=== PATIENT | male | born 1950 | race Caucasian/White ===

== ENCOUNTER 2017-02-06 10:40 | Emergency (ER) | payer OTHER ==
[~2017-02-06] VITALS: Ht 165.1 cm; Wt 70.3 kg
[~2017-02-06 10:40] MED LIST: ADVAIR 250-501 EACH INH; AMLODIPINE BESYL5 M1 PO; AUGMENTIN 875-1 EACH PO; BUPROPION XL300 M1 PO; COUMADIN5 M2 PO; GABAPENTIN400 M2 PO; METOPROLOL TART25 M1 PO; MORPHINE SULFAT15 M4 PO; MORPHINE SULFAT30 M7 PO; MS CONTIN100 MG PO; OMEPRAZOLE20 M2 PO; PRAVASTATIN SOD80 M2 PO; PREDNISONE10 M2 PO; PROVENTIL HFA6.7 GM INH; SERTRALINE HCL50 MG PO
--- NOTE | 2017-02-06 11:09 | ED MVC/FALL/TRAUMA COMPLAINT ---
History of Present Illness General Chief Complaint: Upper Extremity Problem Stated Complaint: R ELBOW INJURY Source: patient, old records Exam Limitations: no limitations Vital Signs & Intake/Output Vital Signs & Intake/Output Vital Signs Date Time Temp Pulse Resp B/P B/P Pulse O2 O2 Flow FiO2 Mean Ox Delivery Rate 02/06 1334 98.7 92 12 130/87 96 Room Air 02/06 1157 96.9 88 12 159/89 94 Room Air 02/06 1048 98.6 85 18 139/93 98 Room Air Allergies Coded Allergies: Fish Containing Products (Severe, LARYNGEAL EDEMA 01/07/16) FISH latex (Mild, SKIN IRRITATION 01/07/16) Reconcile Medications Albuterol Sulfate (Proventil Hfa) 90 MCG HFA.AER.AD 2 PUF INH 4 TIMES/DAY PRN COPD (Reported) Albuterol Sulfate (Proair Hfa) 90 MCG HFA.AER.AD 2 PUF INH Q4-6 PRN PRN COPD (Reported) Amlodipine Besylate 5 MG TABLET 0.5 TAB PO DAILY HEART (Reported) Apixaban (Eliquis) 5 MG TABLET 1 TAB PO BID PULMONARY EMBOLISM (Reported) Bupropion HCl (Bupropion XL) 300 MG TAB.ER.24H 1 TAB PO DAILY SMOKING CESSATION (Reported) Fluticasone/Salmeterol (Advair 250-50 Diskus) 250 MCG-50 MCG/DOSE BLST.W.DEV 1 PUF INH BID COPD (Reported) Fluticasone/Vilanterol (Breo Ellipta 100-25 Mcg INH) 100 MCG-25 MCG/DOSE BLST.W.DEV 1 PUF INH D COPD (Reported) Gabapentin 400 MG CAPSULE 1 CAP PO TID NERVE DAMAGE (Reported) Metoprolol Tartrate 25 MG TABLET 1 TAB PO BID HEART (Reported) Morphine Sulfate (Morphine Sulfate ER) 30 MG TABLET.ER 1 TAB PO BID PAIN ( Reported) Morphine Sulfate 30 MG TABLET 1 TAB PO 4XDP PAIN (Reported) Morphine Sulfate 15 MG TABLET 30 MG PO Q4P PRN BACK PAIN Morphine Sulfate (Ms Contin) 100 MG TABLET.ER 75 MG PO BID back pain Omeprazole 20 MG CAPSULE.DR 20 MG PO DAILY AC HEARTBURN Oxycodone HCl 5 MG CAPSULE 1-2 CAP PO 4XDP PRN pain Pravastatin Sodium 80 MG TABLET 1 TAB PO DAILY CHOLESTEROL (Reported) Prednisone 10 MG TABLET 0 PO SEE ADMIN CRITERIA COPD take 5 tabs x 2 days take 4 tabs x 3 days take 3 tabs x 3 days take 2 tabs x 3 days take 1 tab x 3 days take half a tab x 3 days then stop Sertraline HCl 50 MG TABLET 1 TAB PO DAILY ANXIETY (Reported) Tiotropium [place] (Spiriva Respimat) 2.5 MCG/ACTUATION MIST.INHAL 2 PUF INH D COPD (Reported) Warfarin Sodium (Coumadin) 5 MG TABLET 1 TAB PO DAILY blood thinner please check INR on 01/29/2016 to dose Coumadin Triage Note: 66 YO MALE TO TRIAGE STATES HE SLIPPED ON THE ICE THIS AM AND FELL ONTO HIS R ARM. +HEAD STRIKE, -LOC. PT STATES HE IS ON ELIQUIS, PT ARRIVES WITH BRACE ON R WRIST FOR "BRACHIAL REPAIR" THAT WAS DONE YEARS AGO, STATES HE WEARS THE SPLINT NEEDED FOR SUPPORT. Triage Nurses Notes Reviewed? yes HPI: Patient states that he slipped on the ice in his driveway and fell and landed on his right elbow. Patient also hit his head but there is no loss of consciousness. Patient denies any headache or blurry vision. There is no nausea or vomiting. He is having 10 out of 10 throbbing pain to his right elbow. Pain increases with movement. There is no radiation of the pain. Patient has no other complaints. Past History Travel History Traveled to [place] past 21 day No Medical History Any Pertinent Medical History? see below for history Neurological: NONE EENT: NONE Cardiovascular: AFIB, hypertension, hyperlipidemia Respiratory: COPD, pulmonary embolism Gastrointestinal: NONE Hepatic: HEP B Renal: NONE Musculoskeletal: disk herniation, CHRONIC BACK PAIN Psychiatric: NONE Endocrine: NONE Blood Disorders: ESSENTIAL THROMBOCYTOSIS Cancer(s): NONE History of MRSA: No History of VRE: No History of CDIFF: No Influenza Vaccine: 12/08/15 Surgical History Surgical History: non-contributory Psychosocial History Who do you live with Spouse Services at Home None What is your primary language Slovak Tobacco Use: Never used ETOH Use: denies use Illicit Drug Use: denies illicit drug use Family History Family History, If Any: Relation not specified for: *No pertinent family history Hx Contributory? No Review of Systems Review of Systems Constitutional: Reports: no symptoms. Eyes: Reports: no symptoms. Ears, Nose, Throat, Mouth: Reports: no symptoms. Respiratory: Reports: no symptoms. Cardiovascular: Reports: no symptoms. Gastrointestinal/Abdominal: Reports: no symptoms. Genitourinary: Reports: no symptoms. Musculoskeletal: Reports: see HPI, joint pain. Skin: Reports: no symptoms. Neurological/Psychological: Reports: no symptoms. All Other Systems: Reviewed and Negative Physical Exam Physical Exam General Appearance: well developed/nourished, alert, awake, moderate distress Head: atraumatic Eyes: Bilateral: PERRL, EOMI. Ears, Nose, Throat, Mouth: hearing grossly normal, moist mucous membrane Neck: normal inspection, supple, full range of motion, no midline tenderness Respiratory: normal breath sounds, chest non-tender, no respiratory distress, lungs clear Cardiovascular: regular rate/rhythm, normal peripheral pulses Gastrointestinal: normal bowel sounds, soft, non-tender, no organomegaly Back: normal inspection, normal range of motion, no vertebral tenderness Extremities: tenderness (RIGHT ELBOW) Neurologic/Psych: no motor/sensory deficits, awake, alert, oriented x 3, normal mood/affect Skin: intact, normal color, warm/dry Core Measures ACS in differential dx? No CVA/TIA Diagnosis No Sepsis Present: No Sepsis Focused Exam Completed? No Progress Differential Diagnosis: C/T/L spine injury, ext injury, ICH Plan of Care: Orders Procedure Date/time Status Durable Medical Equipment 02/06 1229 Active PROTHROMBIN TIME 02/06 1108 Complete Laboratory Tests 02/06/17 1119: PT 15.6 H, INR 1.49 H Diagnostic Imaging: Viewed by Me: Radiology Read, CT Scan. Discussed w/RAD: Radiology Read, CT Scan. Radiology Impression: PATIENT: ISHAAN KUNZ PRESENT AGE: 66 PATIENT ACCOUNT NO: [id number] : 49 LOCATION: [facility] ORDERING PHYSICIAN: Kyle Armstrong MD SERVICE DATE: 02/06/17-1107 EXAM TYPE: RAD - XRY-ELBOW 3 OR MORE VIEWS, R EXAMINATION: XR ELBOW, RIGHT CLINICAL INFORMATION : 66-year-old male, status post fall, complaining of severe right elbow pain. COMPARISON: None TECHNIQUE: AP, lateral, and oblique views of the right elbow. FINDINGS: There is a displaced olecranon fracture present with a gap of 1.2 cm between the fracture fragments. The fracture line is extending to the articular surface. There are significant overlying soft tissue swelling and elbow joint effusion present. There is no radiographic evidence of any other associated fracture visualized, specifically the distal part of the humerus, the coronoid process of the ulna and the adjacent part of the radial head. IMPRESSION: Displaced olecranon fracture of the right ulna. DICTATED BY: Drea Corcoran MD DATE/TIME DICTATED:02/06/171149 ASSOCIATE FINANCIAL ADVISOR:LAURA DATE/TIME TRANSCRIBED:02/06/171149 CONFIDENTIAL, DO NOT COPY WITHOUT APPROPRIATE AUTHORIZATION. <Electronically signed in Other Vendor System> SIGNED BY: Drea Corcoran MD 02/06/17 1200, PATIENT: ISHAAN KUNZ PRESENT AGE: 66 PATIENT ACCOUNT NO: [id number] : 49 LOCATION: [facility] ORDERING PHYSICIAN: Kyle Armstrong MD SERVICE DATE: 02/06/17 EXAM TYPE: CAT - CT CERV SPINE WO IV CONTRAST; CT HEAD WO IV CONTRAST EXAMINATION: CT HEAD WITHOUT CONTRAST CT CERVICAL SPINE WITHOUT CONTRAST CLINICAL INFORMATION: History of fall, head injury, on Coumadin. COMPARISON: None. TECHNIQUE: Noncontrast CT scan of the head and cervical spine, using standard protocol. Multiplanar reconstructed images are obtained. Multiplanar reconstructed images are also obtained. FINDINGS: CT OF THE HEAD: The brain parenchyma, ventricles, cisterns and sulci appear unremarkable. Specifically, no evidence of intra-axial mass, mass effect, extra-axial fluid collection, midline shift, acute intraparenchymal hemorrhage and/or acute infarction present. Both orbital globes , extraocular muscles, optic nerves appear bilaterally symmetric and are unremarkable. The bilateral mastoid air cells appear unremarkable. CT OF THE CERVICAL SPINE: Moderate degenerative spondylosis is seen at C5-C6. The height, alignment of the cervical vertebrae is well maintained. The posterior appendages are intact. Intervertebral disc height is well maintained except for significant decreased disc height at C5-C6. The prespinal soft tissues are unremarkable. Both lung apices are clear. 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 IMPRESSION : 1. No acute intracranial pathology. 2. No CT evidence of any acute fracture no subluxation or dislocation or prespinal soft tissue hematoma present at the cervical spine. 3. Moderate degenerative spondylosis at C5-C6. 4. 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 DICTATED BY: Drea Corcoran MD DATE/TIME DICTATED:02/06/171257 ASSOCIATE FINANCIAL ADVISOR:LAURA DATE/TIME TRANSCRIBED:1257 CONFIDENTIAL, DO NOT COPY WITHOUT APPROPRIATE AUTHORIZATION. < Electronically signed in Other Vendor System> SIGNED BY: Drea Corocran MD 02/06/17 2124 Comments: d/w dr. degroot, he will require surgery. he is on eliquis. will splint and he will follow up this week. Departure Departure Disposition: HOME OR SELF CARE Condition: Stable Clinical Impression Primary Impression: Fracture of right olecranon process Qualifiers: Encounter type: initial encounter Fracture type: closed Qualified Code: S52.021A - Displaced fracture of olecranon process without intraarticular extension of right ulna, initial encounter for closed fracture Referrals: Ginger GIBBS,Simba W. (PCP/Family) Cheo GIBBS,Isaac Additional Instructions: CALL DR. DEGROOT' OFFICE TOMORROW MORNING AND TELL THEM THAT HE WANTS TO SEE YOU EARLY THIS WEEK. YOU WILL NEED SURGERY KEEP SPLINT ON AND KEEP IT DRY TAKE OXY NEEDED FOR PAIN RETURN FOR ANY CONCERNS Departure Forms: Customer Survey General Discharge Information Prescriptions: Current Visit Scripts Oxycodone HCl 1-2 CAP PO 4XDP PRN pain #30 CAP Procedures Splinting Location: RIGHT ELBOW Manual Alignment Performed: No Hand-Made Type: orthoglass Splint: POSTERIOR Splint Applied By: splint applied by me Pre-Proc Neuro Vasc Exam: normal Post-Proc Neuro Vasc Exam: normal
--- NOTE | 2017-02-06 12:00 | RADIOLOGY REPORT ---
EXAMINATION: XR ELBOW, RIGHT CLINICAL INFORMATION: 66-year-old male, status post fall, complaining of severe right elbow pain. COMPARISON: None TECHNIQUE: AP, lateral, and oblique views of the right elbow. FINDINGS: There is a displaced olecranon fracture present with a gap of 1.2 cm between the fracture fragments. The fracture line is extending to the articular surface. There are significant overlying soft tissue swelling and elbow joint effusion present. There is no radiographic evidence of any other associated fracture visualized, specifically the distal part of the humerus, the coronoid process of the ulna and the adjacent part of the radial head. IMPRESSION: Displaced olecranon fracture of the right ulna.
[2017-02-06 12:04] LABS: PT 15.6 SEC (9.4-12.5)
[2017-02-06] MEDS ORDERED: PROAIR HFA8.5 GM INH (12:17)
[2017-02-06] MEDS ORDERED: SPIRIVA RESPIMAT4 GM INH (12:20)
[2017-02-06] MEDS ORDERED: BREO ELLIPTA 11 EACH INH (12:21)
[2017-02-06] MEDS ORDERED: MORPHINE SULFAT30 M7 PO (12:22)
[2017-02-06] MEDS ORDERED: MORPHINE SULFAT30 M3 PO (12:31)
[2017-02-06] MEDS ORDERED: ELIQUIS5 M1 PO (12:34)
[2017-02-06] MEDS ORDERED: OXYCODONE HCL5 M2 PO (12:38)
[2017-02-06 13:34] VITALS: BP 130/87
--- NOTE | 2017-02-06 13:37 | CT SCAN REPORT ---
EXAMINATION: CT HEAD WITHOUT CONTRAST CT CERVICAL SPINE WITHOUT CONTRAST CLINICAL INFORMATION: History of fall, head injury, on Coumadin. COMPARISON: None. TECHNIQUE: Noncontrast CT scan of the head and cervical spine, using standard protocol. Multiplanar reconstructed images are obtained. Multiplanar reconstructed images are also obtained. FINDINGS: CT OF THE HEAD: The brain parenchyma, ventricles, cisterns and sulci appear unremarkable. Specifically, no evidence of intra-axial mass, mass effect, extra-axial fluid collection, midline shift, acute intraparenchymal hemorrhage and/or acute infarction present. Both orbital globes, extraocular muscles, optic nerves appear bilaterally symmetric and are unremarkable. The bilateral mastoid air cells appear unremarkable. CT OF THE CERVICAL SPINE: Moderate degenerative spondylosis is seen at C5-C6. The height, alignment of the cervical vertebrae is well maintained. The posterior appendages are intact. Intervertebral disc height is well maintained except for significant decreased disc height at C5-C6. The prespinal soft tissues are unremarkable. Both lung apices are clear. 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 IMPRESSION: 1. No acute intracranial pathology. 2. No CT evidence of any acute fracture no subluxation or dislocation or prespinal soft tissue hematoma present at the cervical spine. 3. Moderate degenerative spondylosis at C5-C6. 4. 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
== END 2017-02-06 13:40 ==
LOC: ERH 10:40
PROVIDERS: Emergency Medicine
DX: S52.021A Displaced fracture of olecranon process without intraarticular extension of right ulna, initial encounter for closed fracture (principal); W00.0XXA Fall on same level due to ice and snow, initial encounter; Y92.014 Private driveway to single-family (private) house as the place of occurrence of the external cause; Y93.9 Activity, unspecified; Z79.01 Long term (current) use of anticoagulants
CPT/HCPCS: 73080-RT; 96372

== ENCOUNTER → 2017-02-13 | Day surgery (SDC) | payer OTHER ==
[~2017-02-13] VITALS: Ht 177.8 cm; Wt 70.3 kg
[~2017-02-13] MED LIST changes: +BREO ELLIPTA 11 EACH INH; +ELIQUIS5 M1 PO; +MORPHINE SULFAT30 M3 PO; +OXYCODONE HCL5 M2 PO; +PROAIR HFA8.5 GM INH; +SPIRIVA RESPIMAT4 GM INH
--- NOTE | 2017-02-13 16:14 | RADIOLOGY REPORT ---
EXAMINATION: XR ELBOW, RIGHT CLINICAL INFORMATION: Right elbow ORIF. COMPARISON: X-rays of the right elbow 02/06/2017. TECHNIQUE: 3 intraoperative spot images during open reduction internal fixation of previously noted olecranon fracture. FINDINGS: 3 spot images demonstrate screw in figure of eight K-wire fixation of previously noted olecranon fracture. The alignment appears significantly improved with anatomic or near-anatomic alignment with the fracture line barely if at all visible. No additional bone abnormalities. IMPRESSION: Spot images demonstrate orthopedic fixation with improved alignment of previously noted olecranon fracture.
--- NOTE | 2017-02-13 17:05 | Operative Report ---
Operative/Inv Procedure Report Surgery Date: 02/13/17 Name of Procedure: ORIF right olecranon fracture Pre-Operative Diagnosis: Displaced right olecranon fracture Post-Operative Diagnosis: Same Estimated Blood Loss: scant Surgeon/Beadworker: Cheo GIBBS,Isaac Anesthesia: general endotracheal tube Implants: 6.5 mm cannulated screw and tension band 18-gauge wire Drains: None Specimens: None Tourniquet: 63 minutes Complications: None Condition: Stable Operative Indication: Patient is a 66-year-old man who slipped on ice and landed directly on his right elbow. He was found to have a displaced olecranon fracture. 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 Due to the amount of displacement of the fracture was recommended the patient consider surgical management but would need medical clearance. After being cleared patient was scheduled for surgical intervention. Risks benefits and expectations of the surgical procedure which included but were not limited to persistent elbow pain, stiffness malunion nonunion injury to blood vessel or nerve anesthesia risks need for subsequent surgery were discussed and patient wished to proceed with surgical management Operative/Procedure Note Note: Patient was brought to the operating room and transferred to the operating table once under appropriate anesthesia the right upper extremity was prepped and draped in standard fashion. Preoperative IV antibiotic's were given prophylactically. Arm was elevated exsanguinated tourniquet was inflated at 250 mm of pressure. A posterior incision with curvilinear nature around the olecranon was done and the incision was taken down to the underlying fracture site. A large fracture hematoma was evacuated. Fracture fragments were identified. No definite intra-articular injury to the humerus noted. After copious irrigation I then reduced the fracture with the arm in extension. This was followed by placing a guidewire for the 6.5 mm cannulated screw. I obtained fluoroscopic images and confirmed that I was in the bone on both AP and lateral planes. I then measured and probe and placed the appropriate length 6.5 mm cancellus cannulated screw. I used the long threaded cannulated screw to maximize purchase. I was satisfied with the fixation. I then used a [address] and place a drill hole from lateral to medial passed a 18-gauge wire through this distal hole and then using an 14-gauge cannula I passed the wire behind the screw and made a figure 8 tension band. This was tightened laterally. I obtained fluoroscopic images to confirm reduction of the fracture and satisfactory placement of the hardware. I was satisfied took the elbow through range of motion full passive extension and flexion. This was also done under fluoroscopic control and I was satisfied with the stability of the fracture construct. Copious irrigation followed I twisted the wire firmly cut the appropriate length and then buried the wire in the soft tissues along the lateral aspect of the elbow. After copious irrigation the fascia/periosteum was closed loosely over the hardware. The cannulated screw was found to be in good position and was not proud. I closed the small rent in the triceps tendon over the top of the screw head to minimize irritation. Copious irrigation followed 2 -0 Vicryl was closed was used to closed the subcutaneous case tissue and nylon was used to close the skin. Appropriate dressings were applied and the elbow was splinted and patient was awakened and taken to recovery room in good condition. No intraoperative complications blood loss was minimal Discharge Disposition: PACU
== END ==
LOC: STS 01:24
DX: S52.031A Displaced fracture of olecranon process with intraarticular extension of right ulna, initial encounter for closed fracture (principal); W00.0XXA Fall on same level due to ice and snow, initial encounter; J44.9 Chronic obstructive pulmonary disease, unspecified; F17.211 Nicotine dependence, cigarettes, in remission; G89.4 Chronic pain syndrome; Z79.891 Long term (current) use of opiate analgesic; Z86.711 Personal history of pulmonary embolism; Z79.01 Long term (current) use of anticoagulants
CPT/HCPCS: 73070-RT; J0131; J0690; J2250

== ENCOUNTER 2017-10-31 09:20 | Inpatient (IN) | payer OTHER ==
[~2017-10-31] VITALS: Ht 167.6 cm; Wt 63.5 kg
--- NOTE | 2017-10-31 10:02 | ED DYSPNEA/ASTHMA COMPLAINT ---
History of Present Illness General Chief Complaint: Dyspnea (COPD, CHF, Other) Stated Complaint: BIBA SOB Source: patient Exam Limitations: no limitations Vital Signs & Intake/Output Vital Signs & Intake/Output Vital Signs Date Time Temp Pulse Resp B/P B/P Pulse O2 O2 Flow FiO2 Mean Ox Delivery Rate 10/31 1307 98.6 92 20 118/82 93 Room Air 10/31 1152 98.5 96 28 126/89 95 Nasal 1.0L Cannula 10/31 1122 93 Nasal 1.5L Cannula 10/31 1117 110 131/79 10/31 1117 110 131/79 10/31 1116 110 24 131/79 93 Nasal 1.5L Cannula 10/31 0958 95 Nasal 2.0L Cannula 10/31 0939 97.9 118 24 144/94 90 Room Air 10/31 0925 130 36 170/120 89 Nasal 2.0L Cannula Allergies Coded Allergies: Fish Containing Products (Severe, LARYNGEAL EDEMA 01/07/16) FISH latex (Mild, SKIN IRRITATION 01/07/16) Reconcile Medications Albuterol Sulfate (Proair Hfa) 90 MCG HFA.AER.AD 2 PUF INH Q4-6 PRN PRN COPD (Reported) Amlodipine Besylate 5 MG TABLET 0.5 TAB PO DAILY HEART (Reported) Apixaban (Eliquis) 5 MG TABLET 1 TAB PO BID PULMONARY EMBOLISM (Reported) Metoprolol Tartrate 25 MG TABLET 1 TAB PO BID HEART (Reported) Morphine Sulfate (Morphine Sulfate ER) 15 MG TABLET.ER 1 TAB PO BID PAIN ( Reported) Morphine Sulfate 30 MG TABLET 1 TAB PO Q6 PRN back pain (Reported) Pravastatin Sodium 80 MG TABLET 1 TAB PO DAILY CHOLESTEROL (Reported) Sertraline HCl 50 MG TABLET 1 TAB PO DAILY ANXIETY (Reported) Triage Note: BIBA FROM HOME, C/O SOB, PRODUCTIVE COUGH X 5 DAYS, WITH CHEST TIGHTNESS. GIVEN 2 NEBULIZER [place]. Triage Nurses Notes Reviewed? yes HPI: Patient presents for evaluation of worsening dyspnea since this morning. Patient states he has a history of COPD and feels that his current cold is affecting his COPD. Patient states that both he and his are suffering cold symptoms currently. Of note the patient also smokes medicinal marijuana. He did try his pro-air metered-dose inhaler today without much improvement. He does not use home O2. He denies all right fever has had a cough productive of phlegm along with wheezing over the past few days. He also refers an upper chest pain, described as a tightness, typical of his COPD. Past History Travel History Traveled to [place] past 21 day No Medical History Any Pertinent Medical History? see below for history Neurological: NONE EENT: NONE Cardiovascular: AFIB, hypertension, hyperlipidemia Respiratory: COPD, pulmonary embolism Gastrointestinal: NONE Hepatic: HEP B Renal: NONE Musculoskeletal: disk herniation, CHRONIC BACK PAIN Psychiatric: NONE Endocrine: NONE Blood Disorders: ESSENTIAL THROMBOCYTOSIS Cancer(s): NONE History of MRSA: No History of VRE: No History of CDIFF: No Surgical History Surgical History: non-contributory Psychosocial History Who do you live with Spouse Services at Home None What is your primary language Eritrean Tobacco Use: Quit >30 days ago ETOH Use: denies use Family History Family History, If Any: Relation not specified for: *No pertinent family history Hx Contributory? No Review of Systems Review of Systems Constitutional: Reports: no symptoms. EENTM: Reports: no symptoms. Respiratory: Reports: see HPI. Cardiovascular: Reports: see HPI. GI: Reports: no symptoms. Genitourinary: Reports: no symptoms. Musculoskeletal: Reports: no symptoms. Skin: Reports: no symptoms. Neurological/Psychological: Reports: no symptoms. Hematologic/Endocrine: Reports: no symptoms. Immunologic/Allergic: Reports: no symptoms. All Other Systems: Reviewed and Negative Physical Exam Physical Exam Respiratory: see below Comments: Gen.: Well-nourished, well-developed, no acute respiratory distress. Head: Normocephalic, atraumatic. Eyes: Normal inspection bilaterally Ears: Normal inspection bilaterally Nose: Normal inspection Throat/mouth : Moist mucosa Neck: Supple, full range of motion, no goiter, no JVD Heart: Mild tachycardia, Regular rate and rhythm, no murmurs rubs or gallops Lungs: Severely decreased air entry with faint end expiratory wheezing diffusely and scattered mild rhonchi Chest: Nontender Back: Normal range of motion (with mild discomfort secondary to chronic back pain) Abdomen: Soft, nontender, nondistended, normal bowel sounds Extremities: Normal range of motion grossly, equal radial pulses, no cyanosis clubbing or edema, calves nontender Neurologic: Cranial nerves grossly intact, speech is clear Skin: warm and dry Psychiatric: Calm, cooperative, no apparent delusions or hallucinations Core Measures ACS in differential dx? No CVA/TIA Diagnosis No Sepsis Present: No Sepsis Focused Exam Completed? No Progress Differential Diagnosis: asthma, bronchitis, CHF, COPD, pneumonia, pneumothorax Plan of Care: Orders Procedure Date/time Status CBC WITHOUT DIFFERENTIAL 11/01 599 Active BASIC ELECTROLYTES PLUS BUN&CR 11/01 599 Active Heart Healthy Diet 10/31 D Active TROPONIN LEVEL 10/31 2000 Active EKG 10/31 2000 Active EKG 10/31 1837 Active Pathway - chart 10/31 1615 Active LOWER RESPIRATORY CULTURE 10/31 1604 Active ECHOCARDIOGRAM 10/31 1556 Active Pathway - chart 10/31 1553 Active Patient Data 10/31 1518 Active Misc Message 10/31 1513 Active ED Holding Orders 10/31 1513 Active Admit to inpatient 10/31 1513 Active Vital Signs 10/31 1513 Active Code Status 10/31 1513 Active TROPONIN LEVEL 10/31 1417 Complete EKG 10/31 1151 Active Telemetry/Animal Control Officer 10/31 1001 Active TROPONIN LEVEL 10/31 1001 Complete CBC WITHOUT DIFFERENTIAL 10/31 1001 Complete BASIC METABOLIC PANEL 10/31 1001 Complete Intake & Output 10/31 0947 Active EKG 10/31 0920 Active TRC EVALUATION (GEN) 10/31 UNK Active House Staff 10/31 UNK Active VTE Mechanical Prophylaxis 10/31 UNK Active Current Medications Sig/May Start time Last Medication Dose Stop Time Status Admin Amlodipine Besylate 2.5 MG DAILY 11/01 09 AC (Norvasc) Aspirin Buffered 81 MG DAILY 11/01 09 AC (Ecotrin) Sertraline HCl 50 MG DAILY 11/01 09 AC (Zoloft) Methylprednisolone 40 MG Q8 10/310 AC (Solumedrol) Apixaban 5 MG BID 10/31 2099 CAN (Eliquis) Metoprolol Tartrate 25 MG BID 10/31 2100 AC (Lopressor) Morphine Sulfate 15 MG BID 10/31 2100 AC (Ms Contin) Morphine Sulfate 30 MG Q6P PRN 10/31 1900 AC (MSIR) Heparin Sodium/ 25,000 UNIT Q24H 10/31 1730 AC Dextrose (Heparin) Dextrose/Water 500 ML (D5W) Pravastatin Sodium 80 MG 1700 10/31 1700 AC (Pravachol) Acetaminophen 650 MG Q6P PRN 10/31 1615 AC (Tylenol) Albuterol Sulfate 2 PUF Q4-6 PRN PRN 10/31 1600 AC (Ventolin) Azithromycin 500 MG DAILY 10/31 1600 AC (Zithromax) Sodium Chloride 250 ML (Normal Saline 0.9%) Guaifenesin 10 ML Q6-PRN PRN 10/31 1600 AC (Robitussin) Laboratory Tests 10/31/17 1450: Troponin I 1.19 *H 10/31/17 1013: Anion Gap 6, Estimated GFR > 60, BUN/Creatinine Ratio 17.5, Glucose 138 H, Calcium 9.3, Troponin I 0.30 *H, CBC w Diff MAN DIFF ORDERED, RBC 4.74, MCV 85.2 , MCH 28.1, MCHC 33.0, RDW 18.3 H, MPV 7.9, Segmented Neutrophils 84 H, Lymphocytes 10 L, Monocytes 5, Eosinophils 1, Platelet Estimate VERIFIED BY SMEAR, Normocytic RBCs VERIFIED, Normochromic RBCs VERIFIED Microbiology 10/31 160 LOWER RESP: Respiratory Culture - COLB 10/31 160 LOWER RESP: Gram Stain - COLB Initial ED EKG: SINUS TACHYCARDIA WITH NONSPECIFIC st SEGMENT CHANGES ANTEROLATERALLY Repeat EKG: changed (NSR IN 90'S, NO ST CHANGES) Rhythm Strip: normal sinus rhythm Comments: 10/31/2017 10:56:00 AM Kali feels better after his nebulizer treatment. His oxygen saturation is 96% on 2 L (I have weaned him to 1 L/m). Auscultation of the lungs reveals improved air entry bilaterally and more prominent wheezing diffusely. I feel he is improving and have ordered an additional albuterol treatment. 10/31/2017 11:50:04 AM I have updated Kali on his test results including the elevated troponin. I have explained to him the concern that this could reflect damage done to the hard vis--vis a heart attack. I have recommended hospitalization for serial troponin determinations, cardiology consultation and other testing is indicated. He is refusing this currently. He understands the possible fatal nature of a heart attack. He appears more comfortable and states his chest tightness has improved considerably although it is still present. His heart rate is 95 and his blood pressure is normal. I will attempt to contact Dr. Lamar, his ticket sales supervisor. 10/31/2017 2:15:44 PM patient's case discussed with Dr. Lamar who agrees that the patient should be admitted for trending of his troponin level. It seems that his troponin elevation is likely more of a stressed induced troponin leak given his acute COPD exacerbation as opposed to a primary cardiac event. 10/31/2017 2:56:02 PM patient's case discussed with Dr. Mariola Last. 10/31/2017 6:37:36 PM patient's repeat troponin is now 1.9. I have discussed this with Dr. Cazares who recommends discontinuation of the Eliquis and conversion over to heparin in case the patient needs cardiac catheterization. He has requested repeat EKG. He is en route to the hospital to evaluate Kali. MOD notified of Dr. Cazares's recommendations Departure Departure Disposition: STILL A PATIENT Condition: Stable Clinical Impression Primary Impression: COPD exacerbation Secondary Impressions: Elevated troponin Referrals: Ginger GIBBS,Simba Hull (PCP/Family) Departure Forms: Customer Survey General Discharge Information Admission Note Spoke With: Iesha GIBBS,Mariola Hartman Documentation of Exam: Documentation of any treatments & extenuating circumstances including Concerns Regarding Discharge (functional status, medication knowledge or non-compliance, living conditions, etc.) that warrant an admission rather than observation: Patient presented dyspneic, tachycardic and hypoxic. He is experiencing an acute COPD exacerbation. It addition he has an elevated troponin level which likely indicates demand ischemia of his myocardium. I do not feel this is a good candidate for outpatient management as I feel the exertion of outpatient treatment could further worsen his myocardial ischemia. In addition it would further taxes already compromised pulmonary capacity could precipitate worsening dyspnea and hypoxia. In addition the patient would've great difficulty managing ADLs. During his hospitalizations patient to be treated with inhaled bronchodilators and IV steroids. Pulse oximetry should be monitored and patient 's submental oxygen adjusted accordingly. Pulmonary consultation should be considered. Given the patient's elevated troponin, cardiology consultation should be considered and serial troponin level should be checked. Echocardiogram stress testing and/or cardiac catheterization should also be considered under the circumstances. I feel this patient will require a multiple day hospitalization. Critical Care Note Critical Care Note Critical Care Time: 30-74 min
[2017-10-31 10:22] LABS: HEMATOCRIT 40.4 % (42-52); MEAN CORPUSCULAR HGB 28.1 PG (27.0-31.0); MEAN CORPUSCULAR VOLUME 85.2 FL (80.0-94.0); MEAN PLATELET VOLUME 7.9 FL (7.4-10.4); PLATELET COUNT 344 /CUMM (130-400); RBC DISTRIBUTION WIDTH 18.3 % (11.5-14.5); RED BLOOD CELL CT 4.74 /CUMM (4.70-6.10); WHITE BLOOD CELL COUNT 11.7 /CUMM (4.8-10.8)
[2017-10-31] MEDS ORDERED: MORPHINE SULFAT15 M3 PO (10:32)
--- NOTE | 2017-10-31 12:18 | RADIOLOGY REPORT ---
EXAMINATION: XR PORTABLE CHEST CLINICAL INFORMATION: Wheezing, infiltrate. COMPARISON: Chest done on 01/20/2016. TECHNIQUE: Portable frontal view of the chest was obtained. FINDINGS: Significant emphysematous disease is present predominantly involving both upper lobes of the lung. Stable linear interstitial lung markings are noted at both lung bases. Superimposed presumed airspace disease at right lung base shows interval resolution. The cardiomediastinal silhouette is within normal limit. There is no pleural effusion or pneumothorax present. Postsurgical changes are noted within the spine and within the heart, unchanged. IMPRESSION: Stable emphysematous disease redemonstrated involving both upper lobes of the lung, unchanged since 01/20/2016. No radiographic evidence of superimposed acute cardiopulmonary disease.
--- NOTE | 2017-10-31 15:20 | History & Physical ---
Demarco Cadena 10/31/17 1520: General Information and HPI MD Statement: I have seen and personally examined ISHAAN TORRES and documented this H&P. The patient is a 66 year old M who presented with a patient stated chief complaint of [dyspnea]. Source of Information: patient, old records Exam Limitations: no limitations History of Present Illness: Mr. Torres is a 66 y/o M with PMH COPD not on home O2, atrial fibrillation, h/o bilateral PE on elliquis, HTN/HLD, depression, chronic back pain on PO morphine who was BIBA to the ED due to worsening dyspnea. Patient states dyspnea acutely worsened this morning, though has noted increased productive cough for five days ; he states his has had the same symptoms since last week. He did note some sinus tenderness/ear fullness that resolved on its own within 1 day. He denies fever, chills, odynophagia, N/V/D, constipation, LE swelling, chest pain. He does describe midsternal chest tightness as a result of coughing spells, though it is not radiating and nonreproducible with no relation to breathing dynamic. Patient states he is compliant with his medications; his director of social services is Dr. Lamar; pulmunologist is Dr. Cano; PCP is Dr. Miles. Of note, he has had a prior admission to the ICU after worsening hypoxia 2/2 PNA in the context of COPD in 2016. Allergies/Medications Allergies: Coded Allergies: Fish Containing Products (Severe, LARYNGEAL EDEMA 01/07/16) FISH latex (Mild, SKIN IRRITATION 01/07/16) Home Med list Albuterol Sulfate (Proair Hfa) 90 MCG HFA.AER.AD 2 PUF INH Q4-6 PRN PRN COPD (Reported) Amlodipine Besylate 5 MG TABLET 0.5 TAB PO DAILY HEART (Reported) Apixaban (Eliquis) 5 MG TABLET 1 TAB PO BID PULMONARY EMBOLISM (Reported) Metoprolol Tartrate 25 MG TABLET 1 TAB PO BID HEART (Reported) Morphine Sulfate (Morphine Sulfate ER) 15 MG TABLET.ER 1 TAB PO BID PAIN ( Reported) Morphine Sulfate 30 MG TABLET 1 TAB PO Q6 PRN back pain (Reported) Pravastatin Sodium 80 MG TABLET 1 TAB PO DAILY CHOLESTEROL (Reported) Sertraline HCl 50 MG TABLET 1 TAB PO DAILY ANXIETY (Reported) Past History Travel History Traveled to [place] past 21 day No Medical History Neurological: NONE EENT: NONE Cardiovascular: AFIB, hypertension, hyperlipidemia Respiratory: COPD, pulmonary embolism Gastrointestinal: NONE Hepatic: HEP B Renal: NONE Musculoskeletal: disk herniation, CHRONIC BACK PAIN Psychiatric: NONE Endocrine: NONE Blood Disorders: ESSENTIAL THROMBOCYTOSIS Cancer(s): NONE History of MRSA: No History of VRE: No History of CDIFF: No Surgical History Surgical History: non-contributory Past Family/Social History Family History Relations & Conditions if any Relation not specified for: *No pertinent family history Psychosocial History Who Do You Live With? spouse Services at Home: None Primary Language: Armenian Smoking Status: Former Smoker ETOH Use: denies use Illicit Drug Use: medical marijuana yesterday Functional Ability ADLs Independent: dressing, eating, toileting, bathing. Ambulation: independent IADLs Independent: shopping, housework, finances, food prep, telephone, transportation , medication admin. Review of Systems Review of Systems Constitutional: Reports: see HPI, diaphoresis, malaise. EENTM: Reports: no symptoms, nasal congestion. Denies: nasal pain, throat pain, throat swelling. Cardiovascular: Reports: see HPI. Denies: edema, orthopena, palpitations, peripheral edema, syncope. Respiratory: Reports: see HPI, cough, short of breath, sputum production, wheezing. Denies: hemoptysis, orthopnea. GI: Reports: no symptoms. Denies: abdominal pain, constipation, diarrhea, distention, vomiting. Genitourinary: Reports: no symptoms. Musculoskeletal: Reports: back pain. Skin: Reports: no symptoms. Neurological/Psychological: Reports: see HPI. Hematologic/Endocrine: Reports: no symptoms. Immunologic/Allergic: Reports: no symptoms. Exam & Diagnostic Data Last 24 Hrs of Vital Signs/I&O Vital Signs Date Time Temp Pulse Resp B/P B/P Pulse O2 O2 Flow FiO2 Mean Ox Delivery Rate 10/31 1307 98.6 92 20 118/82 93 Room Air 10/31 1152 98.5 96 28 126/89 95 Nasal 1.0L Cannula 10/31 1122 93 Nasal 1.5L Cannula 10/31 1117 110 131/79 10/31 1117 110 131/79 10/31 1116 110 24 131/79 93 Nasal 1.5L Cannula 10/31 0958 95 Nasal 2.0L Cannula 10/31 0939 97.9 118 24 144/94 90 Room Air 10/31 0825 130 36 170/120 89 Nasal 2.0L Cannula Intake & Output 10/31 1600 10/31 0800 10/31 0000 Intake Total 0 Output Total 0 Balance 0 Intake, Oral 0 Output, Urine 0 Patient 140 lb Weight Weight Reported by Patient Measurement Method Physical Exam General Appearance Alert, Oriented X3, Cooperative, No Acute Distress Skin No Rashes, No Significant Lesion HEENT Atraumatic Neck Supple, No JVD Cardiovascular Regular Rate, Normal S1, Normal S2, No Murmurs Lungs Decreased breath sounds bilaterally. No wheezing or crackles heard. Abdomen Normal Bowel Sounds, Soft, No Tenderness Neurological Normal Speech Extremities No Clubbing, No Cyanosis, No Edema Last 24 Hrs of Labs/Kulwinder: Laboratory Tests 10/31/17 1450: Troponin I 1.19 *H 10/31/17 1013: Anion Gap 6, Estimated GFR > 60, BUN/Creatinine Ratio 17.5, Glucose 138 H, Calcium 9.3, Troponin I 0.30 *H, CBC w Diff MAN DIFF ORDERED, RBC 4.74, MCV 85.2 , MCH 28.1, MCHC 33.0, RDW 18.3 H, MPV 7.9, Segmented Neutrophils 84 H, Lymphocytes 10 L, Monocytes 5, Eosinophils 1, Platelet Estimate VERIFIED BY SMEAR, Normocytic RBCs VERIFIED, Normochromic RBCs VERIFIED Microbiology 10/31 160 LOWER RESP: Respiratory Culture - ORD 10/31 160 LOWER RESP: Gram Stain - ORD Assessment/Plan Assessment: Mr. Torres is a 66 y/o M with PMH COPD not on home O2, atrial fibrillation, h/o bilateral PE on elliquis, HTN/HLD, depression, chronic back pain on PO morphine who was BIBA to the ED due to worsening dyspnea. Patient states dyspnea acutely worsened this morning, though has noted increased productive cough for five days ; he states his has had the same symptoms since last week. He did note some sinus tenderness/ear fullness that resolved on its own within 1 day. He denies fever, chills, odynophagia, N/V/D, constipation, LE swelling, chest pain. He does describe midsternal chest tightness as a result of coughing spells, though it is not radiating and nonreproducible with no relation to breathing dynamic. In the ED noted mild leukocytosis, troponin of 0.3, EKG showing NSR, LVH; CXR showing significant emphysematous disease involving upper lobes bilaterally that is stable from 2016, no pleural effusion present. He did smoke marijuana yesterday and states this might have contributed to his status; this, coupled with his as a sick contact and the nature of his symptoms in the setting of COPD is concerning for COPD exacerbation. His troponin elevation likely to demand ischemia 2/2 to this acute process. He is admitted to telemetry for the continued management of the following issues : PROBLEM LIST #Acute COPD Exacerbation #Elevated troponin, demand ischemia #H/o HTN, H/o bilateral PE, H/o a fib, h/o depression PLAN Admit to telemetry for continued cardiac monitoring Serial troponin/EKG Echocardiogram, cardiology consult placed Methylprednisolone 40 mg q8, azithromycin 500 mg qD TRC, home nebulizer Continue home antihypertensives: metoprolol, amlodipine Continue apixaban 5 mg BID Continue sertraline 50 mg qD FULL CODE HEART HEALTHY DIET DVT PPX: ALPS, eliquis As Ranked By This Provider Problem List: 1. COPD exacerbation 2. Elevated troponin Core Measures/Misc (10/23) Acute Coronary Syndrome ACS Diagnosis: Yes (In differential) Congestive Heart Failure Congestive Heart Failure Diagnosis No Cerebrovascular Accident CVA/TIA Diagnosis: No VTE (View Protocol) VTE Risk Factors Smoker No Mechanical VTE Prophylaxis d/t N/A MechProphylax Ordered No VTE Pharm Prophylaxis d/t NA PharmProphylax ordered Sepsis (View protocol) Sepsis Present: No If YES complete Sepsis Event Note If YES complete Sepsis Event Note Tristan Rodgers 10/31/17 1549: Core Measures/Misc (10/23) Sepsis (View protocol) If YES complete Sepsis Event Note If YES complete Sepsis Event Note Resident Review Statement Resident Statement: examined this patient, discussed with quality assurance intern, agreed with quality assurance intern, reviewed images, amended to note Other Findings: This is a 66 years old gentleman with past medical history of COPD,A. fib, HTN, HLD, depression who is presenting with 5 days history of cough that is productive of yellowish green phlegm large amount not associated with fevers or chills but today called ambulance and was brought in due to shortness of breath that was none tolerable. Patient has hx of sick contact his had cough and phlegm production and thinks might have acquired the infection from her. He denies any proximal nocturnal dyspnea orthopnea or edema of the lower limbs. He denies any runny nose, sore throat or sinus pressure. And has no nausea vomiting lightheadedness or dizziness but reports decreased appetite. He follows with Dr. Cano as his clerical order filler and reports to continue taking his medication as instructed. Patient denies any overt chest pain or volunteers slight chest pressure which he cannot characterize and denies feeling like somebody sitting on his chest. When the patient presented in the ER he was afebrile at 97.7 heart rate of 130 respiration of 36 blood pressure 170/120 and saturating 89% on room air Physical examination: Patient lying comfortably on the bed watching television not in acute distress alert oriented to time place and person very pleasant gentleman. Chest: Decreased breath sounds bilaterally no wheezes or crackles Head and neck: White mucous membranes no distended JVD Cardiovascular: Regular rate and rhythm normal S1 normal S2 no murmurs Abdomen: Normal contour movement with respiration no palpable mass Extremities: No edema cyanosis or clubbing Labs: Mild leukocytosis 11,700 with segmented neutrophils 84 slight high glucose of 138 and elevated troponin of 0.30 CXR shows stable emphysema disease without superimposed acute cardiopulmonary disease EKG normal sinus rhythm regular normal axis [address]-T wave changes has left ventricular hypertrophy Assessment and plan 66 years old with COPD presenting with shortness of breath that has been preceded by cough productive of yellowish-green phlegm on presentation was hypoxic at 89 mild leukocytosis 11,700 with segmented neutrophils. X-ray not suggestive of pneumonia. COPD exacerbation Type II demand ischemia Hypertension Admit patient to the telemetry floor Continuous monitoring specialist Troponin and EKGs till when they plan to start decreasing Echocardiogram Cardiology consult has been seen by Dr. Cazares Continue aspirin 81 mg daily IV Solu-Medrol 40 mg every 8, azithromycin 500 mg daily TRC, continue with home nebs Hypertension: Continue amlodipine and metoprolol History of A. fib and pulmonary embolism: Continue Eliquis 5 mg twice a day History of depression: Continue sertraline 50 mg daily Patient is full code Heart health diet Pain pathway Iesha GIBBS,Mariola 11/01/17 0736: Core Measures/Misc (10/23) Sepsis (View protocol) If YES complete Sepsis Event Note If YES complete Sepsis Event Note Attending MD Review Statement Attending Statement Attending MD Statement: examined this patient, discuss w/resident/PA/BREASTFEEDING PEER COUNSELOR, agreed w/resident/PA/BREASTFEEDING PEER COUNSELOR, reviewed EMR data (avail), discussed with nursing, discussed with case mgmt, reviewed images Attending Assessment/Plan: See medical brief addendum note dated 10/31/17
--- NOTE | 2017-10-31 15:45 | Admission Certification ---
Admission Certification Certification Statement - As attending physician, I certify that at the time of - admission, based on clinical presentation, severity of - symptoms, need for further diagnostic testing and - therapeutic interventions, and risk of adverse outcomes - without in-hospital treatment, in my clinical assessment, - this patient requires an acute hospital stay for a minimum - of two nights or longer. I have also considered psychsocial - factors such as support system, advanced age, financial - issues, cognitive issues, and failed out-patient treatments, - past re-admission history, safety of patient, and lack of - compliance as applicable. Specific rationale supporting this admission is: Copd exacerbation with demand ischemia
--- NOTE | 2017-10-31 15:54 | PN- Att Addend ---
Attending Addendum Attending Brief Note 66-year-old male past medical history of COPD with emphysema, previous atrial fibrillation now sinus and on Eliquis chronically, chronic opiate dependence and splenectomy in the past. He is admitted with what appears to be an acute COPD exacerbation with cough purulent sputum and shortness of breath. He was very tachycardic in the ER had some mild chest discomfort and made some troponins in that setting which I suspect is demand ischemia secondary to his tachycardia and COPD exacerbation. At this point will bring him into telemetry, cover him with IV steroids, TRC with nebs and check a sputum for Gram stain and culture. We will continue all of his cardiac medications including his Norvasc, Eliquis, metoprolol and pravastatin. Put in a formal cardiology consult with Dr. Cazares, check an echo for wall motion abnormalities. He is already fully anticoagulated with Eliquis and that serves as DVT prophylaxis.
--- NOTE | 2017-10-31 19:22 | Cons- Cardiology ---
General Information and HPI Consulting Request Date of Consult: 10/31/17 Requested By: Mariola Mohamud MD Reason for Consult: Positive troponin History of Present Illness: The patient is a 66-year-old male with history of COPD, atrial fibrillation status post ablation, history of bilateral PE, hypertension, and chronic back pain who presents with shortness of breath and chest tightness. He has had a recent upper respiratory infection with productive cough for the past 5 days. He has been short of breath for the past few days and the shortness of breath became significantly worse this morning. He notes midsternal chest tightness which he associates with the frequent coughing spells. The chest tightness is a 3-4 out of 10 in severity with no radiation. He notes that the tightness has been continuous since this morning. 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 Lamar at [facility]. No palpitations. No orthopnea. No lightheadedness dizziness. No nausea or vomiting. No diaphoresis Allergies/Medications Allergies: Coded Allergies: Fish Containing Products (Severe, LARYNGEAL EDEMA 01/07/16) FISH latex (Mild, SKIN IRRITATION 01/07/16) Home Med List: Albuterol Sulfate (Proair Hfa) 90 MCG HFA.AER.AD 2 PUF INH Q4-6 PRN PRN COPD (Reported) Amlodipine Besylate 5 MG TABLET 0.5 TAB PO DAILY HEART (Reported) Apixaban (Eliquis) 5 MG TABLET 1 TAB PO BID PULMONARY EMBOLISM (Reported) Metoprolol Tartrate 25 MG TABLET 1 TAB PO BID HEART (Reported) Morphine Sulfate (Morphine Sulfate ER) 15 MG TABLET.ER 1 TAB PO BID PAIN ( Reported) Morphine Sulfate 30 MG TABLET 1 TAB PO Q6 PRN back pain (Reported) Pravastatin Sodium 80 MG TABLET 1 TAB PO DAILY CHOLESTEROL (Reported) Sertraline HCl 50 MG TABLET 1 TAB PO DAILY ANXIETY (Reported) Current Medications: Current Medications Sig/May Start time Last Medication Dose Route Stop Time Status Admin Acetaminophen 650 MG Q6P PRN 10/31 1615 AC PO Albuterol Sulfate 2 PUF Q4-6 PRN PRN 10/31 1600 AC INH Albuterol Sulfate 3 ML ONCE ONE 10/31 1100 DC 10/31 INH 10/31 1101 1106 Albuterol Sulfate 3 ML ONCE ONE 10/31 1015 DC 10/31 INH 10/31 1016 1006 Amlodipine Besylate 2.5 MG DAILY 11/01 09 AC PO Amlodipine Besylate 0 .STK-MED ONE 10/31 1052 DC PO Amlodipine Besylate 5 MG ONCE ONE 10/31 1015 DC 10/31 PO 10/31 1016 1117 Apixaban 5 MG BID 10/31 2100 CAN PO Aspirin 0 .STK-MED ONE 10/31 1146 DC PO Aspirin 325 MG ONCE ONE 10/31 1145 DC 10/31 PO 10/31 1146 1151 Aspirin Buffered 81 MG DAILY 11/01 09 AC PO Azithromycin 500 MG DAILY 10/31 1600 AC Sodium Chloride 250 ML IV Guaifenesin 10 ML Q6-PRN PRN 10/31 1600 AC PO Heparin Sodium/ 25,000 UNIT Q24H 10/31 1730 AC Dextrose IV Dextrose/Water 500 ML Ipratropium [place] 2.5 ML ONCE ONE 10/31 1015 DC 10/31 INH 10/31 1016 1006 Methylprednisolone 40 MG Q8 10/31 2200 AC IV Methylprednisolone 0 .STK-MED ONE 10/31 1052 DC .ROUTE Methylprednisolone 125 MG ONCE ONE 10/31 1015 DC 10/31 IV 10/31 1016 1117 Metoprolol Tartrate 25 MG BID 10/31 2100 AC PO Metoprolol Tartrate 0 .STK-MED ONE 10/31 1051 DC PO Metoprolol Tartrate 25 MG ONCE ONE 10/31 1015 DC 10/31 PO 10/31 1016 1117 Morphine Sulfate 15 MG BID 10/31 2100 AC PO Morphine Sulfate 30 MG Q6P PRN 10/31 1900 AC PO Pravastatin Sodium 80 MG 1700 10/31 1700 AC PO Sertraline HCl 50 MG DAILY 11/01 0900 AC PO Review of Systems Review of Systems: No fever. No chills. No rash. No tremor. No melena. All other systems were reviewed, and were noted to be negative. Past History Travel History Traveled to [place] past 21 day No Medical History Neurological: NONE EENT: NONE Cardiovascular: AFIB, hypertension, hyperlipidemia Respiratory: COPD, pulmonary embolism Gastrointestinal: NONE Hepatic: HEP B Renal: NONE Musculoskeletal: disk herniation, CHRONIC BACK PAIN Psychiatric: NONE Endocrine: NONE Blood Disorders: ESSENTIAL THROMBOCYTOSIS Cancer(s): NONE Surgical History Surgical History: non-contributory Family History Relations & Conditions If Any: MOTHER Bowel disorder Relation not specified for: *No pertinent family history Psychosocial History Who Do You Live With? spouse Services at Home: None Primary Language: Bahraini Smoking Status: Former Smoker ETOH Use: denies use Illicit Drug Use: medical marijuana yesterday Functional Ability ADLs Independent: dressing, eating, toileting, bathing. Ambulation: independent IADLs Independent: shopping, housework, finances, food prep, telephone, transportation , medication admin. Exam & Diagnostic Data Vital Signs and I&O Vital Signs Date Time Temp Pulse Resp B/P B/P Pulse O2 O2 Flow FiO2 Mean Ox Delivery Rate 10/31 1307 98.6 92 20 118/82 93 Room Air 10/31 1152 98.5 96 28 126/89 95 Nasal 1.0L Cannula 10/31 1122 93 Nasal 1.5L Cannula 10/31 1117 110 131/79 10/31 1117 110 131/79 10/31 1116 110 24 13179 93 Nasal 1.5L Cannula 10/31 0958 95 Nasal 2.0L Cannula 10/31 0939 97.9 118 24 144/94 90 Room Air 10/31 0925 130 36 170/120 89 Nasal 2.0L Cannula Intake & Output 10/31 1600 10/31 0800 10/31 0000 10/30 1600 10/30 0800 10/30 0000 Intake Total 0 Output Total 0 Balance 0 Intake, Oral 0 Output, Urine 0 Patient 140 lb Weight Weight Reported by Patient Measurement Method Physical Exam: Gen: The patient is in no acute distress HEENT: Normal nose, ears, and oropharynx. Pupils equal bilaterally. Conjunctiva normal. Neck: Supple with no JVD, no masses, and no thyromegaly Lungs: Scattered rhonchi with normal respiratory effort Heart: RRR, S1, S2, no murmurs. No peripheral edema, 2+ pulses in the lower extremities bilaterally Abdomen: Soft, nontender, no masses. No hepatomegaly. No splenomegaly Extremities: No clubbing or cyanosis. Normal muscle strength in the upper and lower extremities Skin: Normal skin turgor with no skin ulcers or lesions noted. Neuro: Cranial nerves intact. Sensation intact Psych: Alert and oriented x 3 with appropriate affect Labs/Kulwinder Results: Laboratory Tests 10/31 10/31 1450 1013 Chemistry Sodium (137 - 145 mmol/L) 139 Potassium (3.5 - 5.1 mmol/L) 4.0 Chloride (98 - 107 mmol/L) 103 Carbon Dioxide (22 - 30 mmol/L) 30 Anion Gap (5 - 16) 6 BUN (9 - 20 mg/dL) 14 Creatinine (0.7 - 1.2 mg/dL) 0.8 Estimated GFR (>60 ml/min) > 60 BUN/Creatinine Ratio (7 - 25 %) 17.5 Glucose (65 - 99 mg/dL) 138 H Calcium (8.4 - 10.2 mg/dL) 9.3 Troponin I (<0.11 ng/ml) 1.19 *H 0.30 *H Hematology CBC w Diff MAN DIFF ORDERED WBC (4.8 - 10.8 /CUMM) 11.7 H RBC (4.70 - 6.10 /CUMM) 4.74 Hgb (14.0 - 18.0 G/DL) 13.3 L Hct (42 - 52 %) 40.4 L MCV (80.0 - 94.0 FL) 85.2 MCH (27.0 - 31.0 PG) 28.1 MCHC (33.0 - 37.0 G/DL) 33.0 RDW (11.5 - 14.5 %) 18.3 H Plt Count (130 - 400 /CUMM) 344 MPV (7.4 - 10.4 FL) 7.9 Segmented Neutrophils (42.2 - 75.2 %) 84 H Lymphocytes (20.5 - 51.1 %) 10 L Monocytes (1.7 - 9.3 %) 5 Eosinophils (0 - 5.0 %) 1 Platelet Estimate (ADEQUATE) VERIFIED BY SMEAR Normocytic RBCs VERIFIED Normochromic RBCs VERIFIED Diagnostic Data EKG Results EKG tracing is independently reviewed, and reveals sinus tachycardia at 108, premature atrial complex, mild ST depression anteriorly CXR Results Stable emphysematous disease redemonstrated involving both upper lobes of the lung, unchanged since 01/20/2016. No radiographic evidence of superimposed acute cardiopulmonary disease. Other Results Echocardiogram 01/13/16: Normal size left ventricle. Mild concentric left ventricular hypertrophy. Normal left ventricular ejection fraction visually estimated at > 60%. Mild left atrial dilatation. Mild mitral regurgitation. Trace tricuspid regurgitation. Right ventricular systolic pressure estimated to be elevated at 58 mmHg. Assessment/Plan Assessment/Plan The patient is a 66-year-old male with history of atrial fibrillation status post ablation, COPD, and prior pulmonary embolism. He presents with shortness of breath and productive cough. He also notes chest tightness. He is noted to have a positive troponin. The pulmonary findings suggest likely COPD exacerbation and upper respiratory infection. The positive troponin may represent type II PA versus type I non-ST elevation PA. Recommendations: * Treatment of COPD and upper respiratory infection as per the medical team * Continue aspirin * IV heparin per protocol * Discontinue Eliquis while on IV heparin * Echocardiogram * Repeat EKG in the morning Consult Acknowledgment - Thank you for your consult request.
--- NOTE | 2017-10-31 20:22 | Patient Discharge Instructions ---
Discharge Instructions General Discharge Information You were seen/treated for: Presented with a shortness of breath and chest tightness we wanted to admit him for ruling out acute coronary syndrome but he does not want to stay and wanted to be seen by his plating machine operator Dr. Lamar at [facility]. Special Instructions: We advised the patient to follow-up with the plating machine operator Dr. Lamar at [facility] for further evaluation and the care, within a day of discharge. We discussed with him about the complications that can happen due to acute MA/ acute coronary syndrome including arrhythmia and . Diet Recommended Diet: Heart Healthy Acute Coronary Syndrome Inclusion Criteria At DC or during hospital stay patient has or had the following: ACS DIAGNOSIS No Discharge Core Measures Meds if any: Prescribed or Continued at Discharge Meds if any: NOT Prescribed or Continued at Discharge Congestive Heart Failure Inclusion Criteria At DC or during hospital stay patient has or had the following: CHF DIAGNOSIS No Discharge Core Measures Meds if any: Prescribed or Continued at Discharge Meds if any: NOT Prescribed or Continued at Discharge Cerebrovascular accident Inclusion Criteria At DC or during hospital stay patient has or had the following: CVA/TIA Diagnosis No Discharge Core Measures Meds if any: Prescribed or Continued at Discharge Meds if any: NOT Prescribed or Continued at Discharge Venous thromboembolism Inclusion Criteria VTE Diagnosis No VTE Type NONE VTE Confirmed by (Test) NONE Discharge Core Measures - Per Current guidelines, there needs to be overlap - treatment for the first 5 days of Warfarin therapy. - If discharged on Warfarin prior to 5 days of - overlap therapy, the patient will need to be - assessed for post discharge needs including - *Post discharge parental anticoagulation - *Warfarin and/or parental anticoagulation education - *Follow up date to check INR post discharge At least 5 days overlap therapy as Inpatient No Meds if any: Prescribed or Continued at Discharge Note: Overlap Therapy is Warfarin and Anticoagulant Meds if any: NOT Prescribed or Continued at Discharge
--- NOTE | 2017-10-31 20:48 | Event Note ---
Event Note Event Note: I was called to the see the patient as he demanded to leave to [facility] where he believed he would get better as his tank car repairer, Dr. Lamar is located. Nurses relayed to me the same information, both by the patient and the patient's who was present at that time. I saw the patient at around 6 PM; at this time, he was frustrated with the state of his care and demanded to leave AMA. I discussed with him how his current medical condition is being adequately managed here at [place], he strongly disagreed. I went over his condition and plan, and encouraged to wait for a cardiology consult which was already placed. I also explained the risks of leaving AMA at this point. I went back after cardiology's consult at around 7:30 PM, and the patient continued to have the same demands. I went over his care and the plan alongside cardiology's recommendations as well as the clinical reasoning behind his diagnoses; the son was present during this discussion. I proceeded to go over the risks of leaving with his current working diagnoses: COPD exacerbation and troponin elevation which could indicate NSTEMI vs type II DC, risks of which could progress to fatal arrythmias or sudden . Both the patient and his son understood those are possibilities based on his current condition. They accepted these risks and proceeded to sign the AMA form. I explained to the patient the importance of heading over to [facility] right after discharge. The son was in agreement and asserted they will go straight from [facility] to [facility]. The development of this situation and the final decision to leave AM was relayed and discussed with the credit product analyst Dr. Monroe.
[2017-10-31 21:00] VITALS: BP 106/66
== END 2017-10-31 21:05 | DRG 191 ==
LOC: ERH 09:20 → ERHI 15:13 → ENRESERV 15:51 → ERHI 21:05
PROVIDERS: Emergency Medicine
DX: J44.1 Chronic obstructive pulmonary disease with (acute) exacerbation (principal); I24.8 Other forms of acute ischemic heart disease; I48.2 Chronic atrial fibrillation; Z79.01 Long term (current) use of anticoagulants; Z86.711 Personal history of pulmonary embolism; F32.9 Major depressive disorder, single episode, unspecified; G89.29 Other chronic pain; M54.9 Dorsalgia, unspecified; Z79.891 Long term (current) use of opiate analgesic; Z91.040 Latex allergy status; E78.5 Hyperlipidemia, unspecified; Z79.51 Long term (current) use of inhaled steroids; F12.90 Cannabis use, unspecified, uncomplicated; Z87.891 Personal history of nicotine dependence; Z53.21 Procedure and treatment not carried out due to patient leaving prior to being seen by health care provider
CPT/HCPCS: ERO; 71045; 82436; 87070; 93005; 93010; J0456; J1644; J2920; J2930; J3490; J7040; J7060